=== PATIENT | female | born 1945 | race Two or more races ===

== ENCOUNTER 2020-03-16 12:45 | Outpatient (CLI) | payer MEDICARE, MEDICAID ==
[~2020-03-16] VITALS: Ht 134.6 cm; Wt 48.1 kg
[2020-03-16 13:04] VITALS: BP 131/98
== END 2020-03-16 14:45 | disposition home or self-care (01) ==
LOC: PAN 12:45
DX: Z00.00 Encounter for general adult medical examination without abnormal findings (principal)
CPT/HCPCS: G0463

== ENCOUNTER 2020-04-13 13:57 | Outpatient (CLI) | payer MEDICARE, MEDICAID ==
--- NOTE | 2020-04-13 14:17 | General Progress Note ---
Assessment/Plan Assessment/Plan: SUMMARY OF FINDINGS: 1. Gastritis, status post biopsy. 2. Left-sided colonic diverticulosis. 3. Internal hemorrhoids. HP positive>>> will treat>>> RTC 3 months for BT c/o left sided weakness>>> head CT Subjective ROS Limited/Unobtainable: Yes Allergies: Coded Allergies: No Known Allergies (Unverified , 03/16/20) Objective General Appearance: alert EENT: normal ENT inspection Neck: supple Cardiovascular: normal rate Respiratory/Chest: lungs clear Abdomen: normal bowel sounds, non tender, soft Extremities: non-tender Andrey Marie MD Apr 13, 2020 14:17
[2020-04-13 14:24] VITALS: BP 147/69
== END 2020-04-13 15:57 | disposition home or self-care (01) ==
LOC: PAN 13:57
DX: K29.70 Gastritis, unspecified, without bleeding (principal); K57.90 Diverticulosis of intestine, part unspecified, without perforation or abscess without bleeding; K64.8 Other hemorrhoids
CPT/HCPCS: 99212

== ENCOUNTER → 2020-04-19 | Outpatient (CLI) | payer MEDICARE, MEDICAID ==
--- NOTE | 2020-04-19 14:42 | Diagnostic Imaging Report ---
Indications: Dizziness and headache Technique: Spiral acquisitions obtained through the brain. Angled axial and coronal 5 x 5 mm slices were reconstructed. Total dose length product 912 mGycm. CTDI vol(s) 53 mGy. Dose reduction achieved using automated exposure control Comparison: None. Findings: No acute intracranial hemorrhage or edema. No mass effect nor midline shift. Normal hardy-white differentiation. Normal for age ventricles and extra axial CSF spaces. Minimal periventricular deep white matter low-attenuation noted, consistent with chronic microvascular ischemic change. There is less orbits and sinuses are unremarkable. The mastoids are clear. The calvarium is intact. Impression: Minimal age-related changes Negative for acute intracranial bleed or mass effect The CT scanner at [facility] is accredited by the [employer] and the scans are performed using protocols designed to limit radiation exposure to as low as reasonably achievable to attain images of sufficient resolution adequate for diagnostic evaluation.
== END | disposition home or self-care (01) ==
LOC: CAT 13:33
DX: R42 Dizziness and giddiness (principal); R51 Headache
CPT/HCPCS: 70450